=== PATIENT | male | born 1985 | race Caucasian/White ===

== ENCOUNTER → 2022-07-15 00:23 | Outpatient (CLI) | payer OTHER, SELFPAY ==
--- OUTSIDE RECORDS SUMMARY | 2022-07-15 00:31 | XMS_ITS | Clinical Summary ---
:1985 Demographics Home Phone Preferred Language Unknown Marital Status Unknown Religion Affiliation Unknown Race Unknown Ethnic Group Unknown Author Organization [facility] Address [address] [place] [address] Care Team Providers Name Role Phone Unavailable Primary Care Provider Unavailable Encounters Date Type Specialty Care Team Description 06/12/2022 Lab Requisition Clinical Laboratory Outr Resulting Lab , Provider from Last 3 Months Social History Tobacco Use Types Packs/Day Years Used Date Never Assessed Sex Assigned at Date Recorded Not on file Plan of Treatment Not on file Procedures Procedure Name Priority Date/Time Associated Diagnosis Comme nts FECAL BACTERIAL Routine 06/12/2022 16:07 Results for this PATHOGENS BY PCR EDT procedure a re in the results section. from Last 3 Months Results FECAL BACTERIAL PATHOGENS BY PCR (06/12/2022 16:07 EDT) Pathologist Sig nature Salmonella PCR Negative Negative [facility] Shigella/Enteroinvasive Negative Negative [facility] HN LAB CAMPYLOBACTER PCR Negative Negative [facility] Shiga Toxin PCR Negative Negative [facility] Specimen Feces - Specimen from rectum (specimen) Performing Organization Address City/State/ZIP Code Phon e Number [facility] [address] [place] [address] SERVICES from Last 3 Months
--- OUTSIDE RECORDS SUMMARY | 2022-07-15 00:31 | XMS_ITS | Encounter Summary ---
:1985 Author Organization [facility] Address [address] [place] [address] Care Team Providers Name Role Phone Unavailable Primary Care Provider Unavailable Encounter Details Date Type Department Care Team Description 06/17/2022 Ancillary Procedure Radiology Library at Enzo Cox MD [facility] [address] [place] [address] [place] [address] [phone] Social History Tobacco Use Types Packs/Day Years Used Date Never Assessed Sex Assigned at Date Recorded Not on file documented as of this encounter Plan of Treatment Not on filedocumented as of this encounter Procedures Procedure Name Priority Date/Time Associated Diagnosis Comme nts FILM LIBRARY Routine 06/17/2022 12:00 AM Results for this STORAGE ONLY CT EDT procedure ar e in ABDOMEN AND PELVIS the resul ts section. documented in this encounter Results Film Library- Storage Only CT Abdomen & Pelvis (06/17/2022 12:00 AM EDT) Specimen (Source) Anatomical Location Collection Method / Collectio n Time Received Time / Laterality Volume Narrative LISA - 06/27/2022 4:32 PM EDT This exam is auto-finalizing. It's purpo se is for storage only. Enzo Cox MD IMG FILM LIBRARY ORDERABLES Performing Organization Address City/State/ZIP Code Phon e Number RAD [place], [place] documented in this encounter Visit Diagnoses Not on filedocumented in this encounter
--- OUTSIDE RECORDS SUMMARY | 2022-07-15 00:31 | XMS_ITS | Encounter Summary ---
:1985 Demographics Home Phone Preferred Language Unknown Marital Status Unknown Alevism Affiliation Unknown Race Unknown Ethnic Group Unknown Author Organization [facility] Address [address] [place] [address] Care Team Providers Name Role Phone Unavailable Primary Care Provider Unavailable Encounter Details Date Type Department Care Team Description 06/12/2022 Lab Requisition [facility] Outr Resulting Lab, Pathology & Laboratory Provider [facility] [address] [place] [address] Social History Tobacco Use Types Packs/Day Years Used Date Never Assessed Sex Assigned at Date Recorded Not on file documented as of this encounter Plan of Treatment Not on filedocumented as of this encounter Procedures Procedure Name Priority Date/Time Associated Diagnosis Comme nts FECAL BACTERIAL Routine 06/12/2022 16:07 Results for this PATHOGENS BY PCR EDT procedure a re in the results section. documented in this encounter Results FECAL BACTERIAL PATHOGENS BY PCR (06/12/2022 16:07 EDT) Pathologist Sig nature Salmonella PCR Negative Negative [facility] Shigella/Enteroinvasive Negative Negative [facility] HN LAB CAMPYLOBACTER PCR Negative Negative [facility] Shiga Toxin PCR Negative Negative [facility] Specimen Feces - Specimen from rectum (specimen) Performing Organization Address City/State/ZIP Code Phon e Number [facility] [address] [place] [address] SERVICES documented in this encounter Visit Diagnoses Not on filedocumented in this encounter
--- OUTSIDE RECORDS SUMMARY | 2022-07-15 00:31 | XMS_ITS | Encounter Summary ---
:1985 Author Organization [facility] [address] Care Team Providers Name Role Phone Unavailable Primary Care Provider Unavailable Reason for Referral Consultation (Routine) - Authorized Specialty Diagnoses / Procedures Referred By Contact Refer red To Contact Neurology Diagnoses Other psychoactive substance abuse, in remission Enzo Cox MD [facility] [place] [address] [place] [address] Fax: Referral ID Status Reason Start Date Expiration Visits Visits Date Requested Authorized [id number] Authorized Consult, 06/27/2022 06/27/2023 1 1 Test & Treat Encounter Details Date Type Department Care Team Description 06/27/2022 Transcribe Orders eDH Incoming Enzo Cox Other p sychoactive Referrals substance abuse, in [phone] [address] [place] [address] Social History Tobacco Use Types Packs/Day Years Used Date Never Assessed Sex Assigned at Date Recorded Not on file documented as of this encounter Plan of Treatment Scheduled Referrals Name Type Priority Associated Diagnoses Order S chedule Referral to Outpatient Referral Routine Other psychoactive Or dered: Neurology substance abuse, in 06/27/20 22 remission documented as of this encounter Visit Diagnoses Diagnosis Other psychoactive substance abuse, in r emission documented in this encounter
--- OUTSIDE RECORDS SUMMARY | 2022-07-15 00:31 | XMS_ITS | Encounter Summary ---
:1985 [place] [address] Care Team Providers Name Role Phone Unavailable Primary Care Provider Unavailable Encounter Details Date Type Department Care Team Description 06/29/2022 Telephone [place]ology [place] [facility] [place] [address] Social History Tobacco Use Types Packs/Day Years Used Date Never Assessed Sex Assigned at Date Recorded Not on file documented as of this encounter Plan of Treatment Not on filedocumented as of this encounter Visit Diagnoses Not on filedocumented in this encounter
--- OUTSIDE RECORDS SUMMARY | 2022-07-15 00:31 | XMS_ITS | Encounter Summary ---
:1985 [place] [address] Care Team Providers Name Role Phone Unavailable Primary Care Provider Unavailable Encounter Details Date Type Department Care Team Description 07/01/2022 Telephone Pulmonology at [facility] [place] [address] Social History Tobacco Use Types Packs/Day Years Used Date Never Assessed Sex Assigned at Date Recorded Not on file documented as of this encounter Plan of Treatment Not on filedocumented as of this encounter Visit Diagnoses Not on filedocumented in this encounter
--- OUTSIDE RECORDS SUMMARY | 2022-07-15 00:31 | XMS_ITS | Encounter Summary ---
:1985 Author Organization [facility] [place] [address] Care Team Providers Name Role Phone Unavailable Primary Care Provider Unavailable Encounter Details Date Type Department Care Team Description 06/27/2022 Telephone Pulmonology at [facility] Berenice Salas [facility] [place] [address] Social History Tobacco Use Types Packs/Day Years Used Date Never Assessed Sex Assigned at Date Recorded Not on file documented as of this encounter Plan of Treatment Not on filedocumented as of this encounter Visit Diagnoses Not on filedocumented in this encounter
--- NOTE | 2022-07-15 07:45 | DI.RAD_ITS ---
Exam(s) XR FOOT LT COMPLETE EXAM: XR FOOT LT COMPLETE CLINICAL HISTORY: longstanding foot pain,plantar fascial fibromatosis, m72.2. TECHNIQUE: 2D digital imaging was performed. COMPARISON: No exams were available for comparison FINDINGS: 3 views No evidence of fracture or diastasis of the Suha alexandr joint. No pes planus. Tiny inferior calcaneal spur noted. Bone density normal. No osseous lesions. Great toe metatarsophalangeal joint appears unremarkable. No osseous lesions. No erosions. IMPRESSION: No significant findings. DATA REPOSITORY: RADIATION DOSE DELIVERED:
--- NOTE | 2022-07-15 07:45 | DI.RAD_ITS ---
Exam(s) XR ANKLE RT COMPLETE EXAM: XR ANKLE RT COMPLETE CLINICAL HISTORY: long standing foot pain, tarsal tunnel syndrome,g57.53,m72.2. TECHNIQUE: 2D digital imaging was performed. COMPARISON: CR XR ANKLE LT COMPLETE from 07/15/2022 FINDINGS: 3 views No evidence of fracture or widening of the ankle mortise. Talar dome appears unremarkable. No soft tissue swelling. No tarsal coalition. No inferior calcaneal spur. Small enthesophyte is noted post eriorly at the insertional aspect the Achilles tendon. IMPRESSION: DATA REPOSITORY: RADIATION DOSE DELIVERED:
--- NOTE | 2022-07-15 07:45 | DI.RAD_ITS ---
Exam(s) XR FOOT RT COMPLETE EXAM: XR FOOT RT COMPLETE CLINICAL HISTORY: foot pain, longstanding tarsal tunnel,657.52. TECHNIQUE: 2D digital imaging was performed. COMPARISON: CR XR FOOT LT COMPLETE from 07/15/2022 FINDINGS: 3 views No evidence of fracture nor diastasis of the Lisfranc joint. Great toe metatarsophalangeal joint jessica ears unremarkable. No osseous lesions nor erosions. Bone density normal. No no inferior calcaneal spur. Small enthesophyte at the posterior calcaneal Achilles insertional site. No pes planus. IMPRESSION: DATA REPOSITORY: RADIATION DOSE DELIVERED:
--- NOTE | 2022-07-15 07:45 | DI.RAD_ITS ---
Exam(s) XR ANKLE LT COMPLETE EXAM: XR ANKLE LT COMPLETE CLINICAL HISTORY: long standing foot pain, tarsal tunnel syndrome,g57.53,m72.2. TECHNIQUE: 2D digital imaging was performed. COMPARISON: No exams were available for comparison FINDINGS: 3 views No evidence fracture nor widening of the mortise. Talar dome unremarkable. No degenerative changes in the ankle and subtalar joints. No osseous tarsal coalition. Tiny inferior calcaneal spur noted. Small enthesophyte posteriorly at the Achilles attachment. Achilles tendon is not thickened. IMPRESSION: DATA REPOSITORY: RADIATION DOSE DELIVERED:
== END ==
PROVIDERS: Visit Provider Podiatrist Foot & Ankle Surgery
DX: G57.53 Tarsal tunnel syndrome, bilateral lower limbs (principal); M72.2 Plantar fascial fibromatosis
CPT/HCPCS: 73610; 73630